=== PATIENT | male | born 1985 | race Caucasian/White ===

== ENCOUNTER 2021-09-26 15:55 | Emergency (ER) | payer OTHER ==
[~2021-09-26] VITALS: Ht 177.8 cm; Wt 81.6 kg
--- NOTE | 2021-09-26 16:27 | NUR ---
36 Y/O MALE BIB MOTHER FOR SUBJECTIVE FEVER AND BODY CHILLS. PT HAD A POSITIVE HOME TEST AND WOULD LIKE TO BE TESTED HERE. PMHX NONE ALLERGIES: DENIES HOME MEDS: DENIES
--- NOTE | 2021-09-26 16:45 | NUR ---
COVID TEST DONE AND WALKED TO LAB
--- NOTE | 2021-09-26 16:46 | NUR ---
Patient discharged with v/s stable. Written and verbal after care instructions given and explained. Patient verbalized understanding. Ambulatory with steady gait. All questions addressed prior to discharge. Advised to follow up with PMD.
--- NOTE | 2021-09-26 17:36 | NUR ---
LATE ENTRY RECEIVED RESULT FROM LAB, PATIENT COVID +SEMAJ AWARE AND NOTIFIED PATIENT.
== END 2021-09-26 16:45 | disposition home or self-care (01) ==
LOC: MED 15:55
DX: U07.1 COVID-19 (principal)
CPT/HCPCS: 99283